=== PATIENT | female | born 2000 | race Caucasian/White ===

== ENCOUNTER 2022-02-01 00:40 | Emergency (ER) | payer MEDICAID ==
[~2022-02-01] VITALS: Ht 149.9 cm; Wt 77.0 kg
[2022-02-01] MEDS ORDERED: IBUPROFEN 400MG TABLET PO ONE (03:15)
[2022-02-01] MEDS ORDERED: LIDOCAINE HCL/EPINEPHRINE 1%-EPI 1:100,000 20 ML VIAL INFIL ONE (03:15)
[2022-02-01] MEDS ORDERED: AMOXICILLIN/POTASSIUM CLAVULANATE 875/125MG TAB PO ONE (03:15)
[2022-02-01] MEDS ORDERED: TETANUS, DIPHTHERIA, PERTUSSIS VAC/PF 0.5ML (>10YR OLD) IM ONE ×2 (03:15→04:15)
[2022-02-01] MEDS ORDERED: HYDROCODONE/ACETAMINOPHEN 10/325MG TABLET PO ONE (03:30)
[2022-02-01] MEDS ORDERED: IBUP-2029 MT (03:46)
[2022-02-01] MEDS ORDERED: AMOX1TAB16 MT (03:46)
[2022-02-01 04:50] VITALS: BP 121/77
== END 2022-02-01 04:56 | disposition home or self-care (01) ==
LOC: ER 00:40
DX: S51.832A Puncture wound without foreign body of left forearm, initial encounter (principal); W54.0XXA Bitten by dog, initial encounter; Y93.89 Activity, other specified; Y92.89 Other specified places as the place of occurrence of the external cause; Y99.8 Other external cause status; J45.909 Unspecified asthma, uncomplicated
CPT/HCPCS: 73090; 90471; 90715; 99284